=== PATIENT | female | born 1970 | race Caucasian/White ===

== ENCOUNTER 2020-11-04 08:54 | Outpatient (CLI) | payer OTHER, SELFPAY ==
--- NOTE | 2020-11-04 11:30 | NEURO_ITS ---
Impression: # Complains of numbness of right lower extremity. # Right posterior tibial neuropathy distally. # Normal needle/EMG exam. # higher involvement needs to be ruled out as well. Nerve Conduction Studies Anti Sensory Summary Table Stim Site NR Peak (ms) P-T Amp (?V) Site1 Site2 Delta-P (ms) Dist (cm) Mike (m/s) Right Sup Fibular Anti Sensory (Ant Lat Mall) 14 cm 3.2 22.0 14 cm Ant Lat Mall 3.2 16.0 50 Right Sural Anti Sensory (Lat Mall) Calf 3.3 11.7 Calf Lat Mall 3.3 16.0 48 Motor Summary Table Stim Site NR Onset (ms) O-P Amp (mV) Site1 Site2 Delta-0 (ms) Dist (cm) Mike (m/s) Right Peroneal Motor (Vastus Med) Ankle 4.1 1.0 Popit Ankle 7.0 36.0 51 Popit 11.1 0.9 Right Tibial Motor (Abd Carey Brev) Ankle 8.0 3.2 Knee Ankle 9.4 41.0 44 Knee 17.4 4.9 F Wave Studies NR F-Lat (ms) L-R F-Lat (ms) Right Peroneal (Mrkrs) (EDB) 48.33 Right Tibial (Mrkrs) (Abd Hallucis) 55.63 EMG Side Muscle Nerve Root Ins Act Fibs Amp Dur Recrt Comment Right AntTibialis Dp Br Fibular L4-5 Nml Nml Nml Nml Nml Right Gastroc Tibial S1-2 Nml Nml Nml Nml Nml Right Fibularis Long Sup Br Fibular L5-S1 Nml Nml Nml Nml Nml Right Flex Dig Long Tibial L5-S2 Nml Nml Nml Nml Nml Right Ext Dig Brev Dp Br Fibular L5, S1 Nml Nml Nml Nml Nml MTDD
== END 2020-11-04 08:55 | disposition home or self-care (01) ==
PROVIDERS: PCP Internal Medicine; Visit Provider Internal Medicine
DX: R20.0 Anesthesia of skin (principal)
CPT/HCPCS: 95886; 95908